=== PATIENT | male | born 1980 | race African-American/Black ===

== ENCOUNTER 2016-07-04 08:53 | Emergency (ER) ==
[2016-07-04 09:01] VITALS: BP 151/73
--- NOTE | 2016-07-04 09:35 | PROVIDER DOCUMENTATION ---
HPI-General Adult - General Source: patient - History of Present Illness -Gen Adult Nature of Presenting Problems: Pt is 35 y/o M presents to the ED with F. Pt states waking up this am feeling warm. Pt denies cough and pain. Pt states also needing refill for BP meds. Location of Pain/Injury: reports: none Pain Radiation: reports: no radiation Quality of Pain: reports: none Severity: reports: mild Onset/Duration: reports: this morning Timing: reports: still present Context/Activities at Onset: reports: light activity Modifying Factors: improves with: nothing Associated Symptoms: reports: fever/chills (F). denies: anxiety, arm pain, back /neck pain, chest pain, constipation, cough, diaphoresis, diarrhea, dizziness, EENT symptoms, fatigue, genitourinary problems, headaches, heartburn, joint pain , loss of appetite, malaise, muscle aches, sinus congestion/drainage, nausea, rash, seizure, shortness of breath, sensory/motor loss, pain with inspiration, swelling/mass in abdomen, syncope, vomiting, weakness, trouble walking Similar Symptoms Previously?: No Recently seen or treated by another doctor?: No <Nasreen Chase - Last Filed: 07/04/16 09:39> <Raymond Baig - Last Filed: 07/04/16 09:51> - General Chief Complaint: Cold Symptoms Stated Complaint: FEVER Time Seen by Provider: 07/04/16 09:06 Allergies/Adverse Reactions: Patient Allergies Allergy/AdvReac Type Severity Reaction Status Date / Time No Known Allergies Allergy Verified 07/03/15 14:29 Home Medications: Home Medication List Medication Instructions Recorded Confirmed Last Taken Type Gabapentin [Neurontin] 900 mg PO TID 07/03/15 07/03/15 07/02/15 History Hydrocodone/Acetaminophen [Lortab 1 tab PO Q6H PRN 07/03/15 07/03/15 07/02/15 History 10-325 mg Tablet] Lorazepam [Ativan] 1 mg PO BID 07/03/15 07/03/15 Unknown History Azithromycin [Zithromax Z-Chris] 250 mg PO DIRECTED #1 pkg 09/27/15 Unknown Rx Doxycycline 100 mg PO BID #20 capsule 09/27/15 Unknown Rx Prednisone 20 mg PO BID #10 tablet 05/24/16 Unknown Rx Azithromycin [Zithromax Z-Chris] 250 mg PO DIRECTED #1 pkg 07/04/16 Unknown Rx Ibuprofen [Motrin] 800 mg PO Q8H PRN PRN #20 tablet 07/04/16 Unknown Rx Lisinopril/Hydrochlorothiazide 1 each PO DAILY #30 tablet 07/04/16 Unknown Rx [Lisinopril-Hctz 20-12.5 mg Tab] Review of Systems - Adult - REVIEW OF SYSTEMS - ADULT Constitutional: reports: fever. denies: chills Eyes: denies: blurred vision, double vision Ears, Nose, Mouth & Throat: denies: ear pain, nose pain, throat pain Cardiovascular: reports: irregular heart rate (tachy). denies: chest pain, heart murmur Respiratory: denies: cough, shortness of breath, wheezing Gastrointestinal: denies: abdominal pain, hematemesis, diarrhea, nausea, vomiting Genitourinary: denies: dysuria, hematuria Musculoskeletal: denies: bone pain, joint pain, neck pain Integumentary: denies: hives, itching Neurological: denies: dizziness/vertigo, headache/migraines Psychiatric: reports: no symptoms reported Endocrine: reports: no symptoms reported Hematologic/Lymphatic: reports: no symptoms reported Allergic/Immunologic: reports: no symptoms reported All Other Systems: Reviewed and Negative <Nasreen Chase - Last Filed: 07/04/16 09:39> Past History - Adult - PAST MEDICAL HISTORY-ADULT Review of Records: reports: Nursing Assessment Review, Medications Reviewed, Social history reviewed & non-contributory. Major Childhood Illnesses: reports: denies history Cardiovascular: reports: HTN Respiratory: reports: denies history Gastrointestinal: reports: denies history Obstetrical/Gynecological: reports: denies history Genitourinary: reports: denies history Musculoskeletal: reports: denies history Neurological: reports: denies history Psychiatric: reports: depression Endocrine/Immune: reports: denies history Other Conditions: reports: denies history - PRIOR SURGERIES/PROCEDURES Surgical/Procedure History: reports: other (RAKA) - IMMUNIZATION STATUS Childhood Immunizations: See Nurse Assessment Flu Vaccine: See Nurse Assessment - FAMILY HISTORY Family History: reviewed, not pertinent - SOCIAL HISTORY Smoking: cigarettes, greater than 1 pack/day Provider spent 3-5 mins advising pt. on dangers of tobacco.: Discussed manners to quit use, and f/u contacts for add'l counseling. Substance Use: alcohol Alcohol Use Frequency: occasionally Number of drinks per typical drinking period:: 3-4 drinks Living Situation: family <Aditi Chaseomi - Last Filed: 07/04/16 09:39> Physical Exam-General - PHYSICAL EXAM-ADULT Initial Vital Signs Reviewed: Yes - CONSTITUTIONAL General Appearance: appears well, alert, no apparent distress - EYES Eyes: PERRL/EOMI, pink conjunctivae, fundi clear, no AV nicking - HEAD, EARS, NOSE, MOUTH & THROAT HENMT: normocephalic/atraumatic, moist mucous membranes, normal ENT inspection, TMs normal, pharynx normal - NECK Neck: non-tender, full range of motion, supple, normal inspection - RESPIRATORY Respiratory: chest non-tender, lungs clear, normal breath sounds, no pleuratic chest pain, no respiratory distress, no accessory muscle use - CARDIOVASCULAR Cardiovascular: normal peripheral pulses, no edema, no gallop, no JVD, no murmur , tachycardia - GASTROINTESTINAL (ABDOMEN) Abdominal Exam: normal bowel sounds, non tender, soft, no organomegaly, no pulsatile mass - LYMPHATIC Lymphatic: no adenopathy - MUSCULOSKELETAL Back Exam: normal inspection, no CVA tenderness, no vertebral tenderness Extremity: normal range of motion, non-tender, normal gait, normal inspection, no pedal edema, no calf tenderness, normal capillary refill, pelvis stable - SKIN Integumentary: normal color, normal turgor, warm/dry - NEUROLOGIC Neurologic: pattern grader cutter II-XII nml as tested, grossly normal, no motor/sensory deficits - PSYCHIATRIC Psych/Mental Status: normal mood/affect, normal thought content, normal thought process, oriented x 3 <Nasreen Chase - Last Filed: 07/04/16 09:39> Progress - PLAN OF CARE/RESULTS Progress/Plan/Lab Results: Orders Category Date Time Status CHEST-2 VIEWS [RAD] Stat Exams 07/04/16 09:07 Taken Flu [INFLUENZA SCREEN PL] Stat Lab 07/04/16 09:05 Received Vital Signs - 24 hr 07/04/16 08:59 Temperature 100.2 F H Pulse Rate 116 H Respiratory 18 Rate Blood Pressure 151/73 O2 Sat by Pulse 97 Oximetry Laboratory Tests 07/04/16 09:05 Influenza A (Rapid) NEGATIVE Influenza B (Rapid) NEGATIVE - XRAY 1 XRAY: Bilateral XRAY Study: Chest Impression: Normal XRAY Interpretation: negative <Nasreen Chase - Last Filed: 07/04/16 09:39> Departure - Departure Time of Disposition Order: 09:35 Certified Medical Emergency: Emergent <Nasreen Chase - Last Filed: 07/04/16 09:39> - Departure Time of Disposition Order: 09:48 Certified Medical Emergency: Emergent <Raymond Baig - Last Filed: 07/04/16 09:51> - Departure DIAGNOSIS: Encounter for medication refill, Viral syndrome Disposition: HOME 01 Condition: Stable Additional Instructions: ED Follow Up Instructions: You have been treated by a care provider in the Emergency Department. These instructions are being provided to you so you can have an understanding of how to care for yourself upon discharge. Upon discharge from the Emergency Department, you are responsible for making arrangements for follow-up care by a physician of your choice. Take all prescribed medications as directed. Return to the Emergency Department immediately for any new or worsening symptoms. You may call the Physician Referral phone number at [phone] to obtain a list of Physicians who are taking new patients. Prescriptions: Lisinopril/Hydrochlorothiazide [Lisinopril-Hctz 20-12.5 mg Tab] 1 each PO DAILY #30 tablet Ibuprofen [Motrin] 800 mg PO Q8H PRN PRN #20 tablet PRN Reason: Fever Azithromycin [Zithromax Z-Chris] 250 mg PO DIRECTED #1 pkg Referrals: None,PCP [Primary Care Provider] - Attestation - Scribe Verification/Attestation Scribe:: Nasreen Chase Acting as Scribe for:: Raymond Baig Scribe documention review:: This chart was documented by a scribe and accurately reflects the service the provider performed and the decisions made by the provider. <Nasreen Chase - Last Filed: 07/04/16 09:39> Physician Attestation - Physician Attestation I, the provider, attest to the following statement:: Raymond Baig Physician documentation Attestation:: This documentation recorded by the scribe accurately reflects the service I personally performed and the decisions made by me. <Raymond Baig - Last Filed: 07/04/16 09:51>
[2016-07-04] MEDS ORDERED: MOTRIN ONE (09:42)
[2016-07-04] MEDS ORDERED: MOTRIN PO ONE (09:47)
--- NOTE | 2016-07-04 09:55 | Diag Imaging Result Document ---
PROCEDURE NAME: CHEST-2 VIEWS - 07/04/2016 CHEST, TWO VIEWS: INDICATION: Fever. COMPARISON: 09/27/2015. FINDINGS: The cardiomediastinal silhouette is within normal limits. The pulmonary vasculature is not congested. No infiltrates or effusions are identified. IMPRESSION: No acute abnormalities.
== END 2016-07-04 10:16 | disposition home or self-care (01) ==
LOC: P.ED 08:53
DX: B34.9 Viral infection, unspecified (principal); R50.9 Fever, unspecified; R00.0 Tachycardia, unspecified; I10 Essential (primary) hypertension; F17.210 Nicotine dependence, cigarettes, uncomplicated; Z76.0 Encounter for issue of repeat prescription; Z71.6 Tobacco abuse counseling
CPT/HCPCS: 71020; 87804; 99283

== ENCOUNTER 2016-07-07 00:04 | Emergency (ER) ==
[2016-07-07 01:11] LABS: MANUAL DIFF NEEDED? NO
--- NOTE | 2016-07-07 01:13 | PROVIDER DOCUMENTATION ---
HPI-General Adult - General Chief Complaint: Extremity Pain Stated Complaint: SWOLLEN LEG Time Seen by Provider: 07/07/16 00:46 Source: patient Allergies/Adverse Reactions: Patient Allergies Allergy/AdvReac Type Severity Reaction Status Date / Time No Known Allergies Allergy Verified 07/03/15 14:29 Home Medications: Home Medication List Medication Instructions Recorded Confirmed Last Taken Type Gabapentin [Neurontin] 900 mg PO TID 07/03/15 07/03/15 07/02/15 History Hydrocodone/Acetaminophen [Lortab 1 tab PO Q6H PRN 07/03/15 07/03/15 07/02/15 History 10-325 mg Tablet] Lorazepam [Ativan] 1 mg PO BID 07/03/15 07/03/15 Unknown History Azithromycin [Zithromax Z-Chris] 250 mg PO DIRECTED #1 pkg 09/27/15 Unknown Rx Doxycycline 100 mg PO BID #20 capsule 09/27/15 Unknown Rx Prednisone 20 mg PO BID #10 tablet 09/27/15 Unknown Rx Azithromycin [Zithromax Z-Chris] 250 mg PO DIRECTED #1 pkg 07/04/16 Unknown Rx Ibuprofen [Motrin] 800 mg PO Q8H PRN PRN #20 tablet 07/04/16 Unknown Rx Lisinopril/Hydrochlorothiazide 1 each PO DAILY #30 tablet 07/04/16 Unknown Rx [Lisinopril-Hctz 20-12.5 mg Tab] Clindamycin [Cleocin] 300 mg PO Q6HR #40 capsule 07/07/16 Unknown Rx Sulfamethoxazole/Trimethoprim 2 each PO BID #40 tablet 07/07/16 Unknown Rx [Bactrim Ds Tablet] - History of Present Illness -Gen Adult Nature of Presenting Problems: 35 YOBLKM PRESENTS TO ED WITH C/O PT STATES LT THIGH HAS BEEN SWOLLEN X 2 DAYS. PT DENIES ANY SOB. Location of Pain/Injury: reports: lower extremity Pain Radiation: reports: no radiation Quality of Pain: reports: aching Severity: reports: moderate Onset/Duration: reports: 2 days ago Timing: reports: still present Context/Activities at Onset: reports: light activity Modifying Factors: improves with: nothing Similar Symptoms Previously?: No Recently seen or treated by another doctor?: No Review of Systems - Adult - REVIEW OF SYSTEMS - ADULT Constitutional: denies: chills, fever Eyes: reports: no symptoms reported Ears, Nose, Mouth & Throat: reports: no symptoms reported Cardiovascular: denies: chest pain, palpitations, syncope Respiratory: denies: cough, shortness of breath, wheezing Gastrointestinal: denies: abdominal pain, diarrhea, nausea, vomiting Genitourinary: reports: no symptoms reported Musculoskeletal: reports: joint swelling (LEFT THIGH), muscle aches (LEFT THIGH) . denies: back pain, neck pain Integumentary: reports: no symptoms reported Neurological: denies: dizziness/vertigo, headache/migraines, syncope Psychiatric: reports: no symptoms reported Endocrine: reports: no symptoms reported Hematologic/Lymphatic: reports: no symptoms reported Allergic/Immunologic: reports: no symptoms reported All Other Systems: Reviewed and Negative Past History - Adult - PAST MEDICAL HISTORY-ADULT Review of Records: reports: Nursing Assessment Review, Medications Reviewed Cardiovascular: reports: HTN Psychiatric: reports: depression - PRIOR SURGERIES/PROCEDURES Surgical/Procedure History: reports: other (RAKA) - IMMUNIZATION STATUS Childhood Immunizations: See Nurse Assessment Flu Vaccine: See Nurse Assessment - FAMILY HISTORY Family History: reviewed, not pertinent - SOCIAL HISTORY Smoking: cigarettes, greater than 1 pack/day Provider spent 3-5 mins advising pt. on dangers of tobacco.: Discussed manners to quit use, and f/u contacts for add'l counseling. Substance Use: denies Alcohol Use Frequency: never Living Situation: family Physical Exam-General - CONSTITUTIONAL General Appearance: alert, mild distress - EYES Eyes: PERRL/EOMI, pink conjunctivae - HEAD, EARS, NOSE, MOUTH & THROAT HENMT: normocephalic/atraumatic, moist mucous membranes - NECK Neck: non-tender, full range of motion, supple - RESPIRATORY Respiratory: chest non-tender, lungs clear, normal breath sounds - CARDIOVASCULAR Cardiovascular: normal peripheral pulses, tachycardia - GASTROINTESTINAL (ABDOMEN) Abdominal Exam: normal bowel sounds, non tender, soft - LYMPHATIC Lymphatic: no adenopathy - MUSCULOSKELETAL Back Exam: normal inspection, no CVA tenderness, no vertebral tenderness Extremity: normal range of motion, swelling (LT THIGH), tenderness (LT THIGH) - SKIN Integumentary: normal color, normal turgor, warm/dry - NEUROLOGIC Neurologic: grossly normal - PSYCHIATRIC Psych/Mental Status: oriented x 3 Departure - Departure Time of Disposition Order: 02:17 DIAGNOSIS: Cellulitis Qualifiers: Site of cellulitis: unspecified site Qualified Code(s): L03.90 - Cellulitis, unspecified Disposition: HOME 01 Certified Medical Emergency: Emergent Condition: Stable Additional Instructions: ED Follow Up Instructions: You have been treated by a care provider in the Emergency Department. These instructions are being provided to you so you can have an understanding of how to care for yourself upon discharge. Upon discharge from the Emergency Department, you are responsible for making arrangements for follow-up care by a physician of your choice. Take all prescribed medications as directed. Return to the Emergency Department immediately for any new or worsening symptoms. You may call the Physician Referral phone number at [phone] to obtain a list of Physicians who are taking new patients. Prescriptions: Clindamycin [Cleocin] 300 mg PO Q6HR #40 capsule Sulfamethoxazole/Trimethoprim [Bactrim Ds Tablet] 2 each PO BID #40 tablet Referrals: None,PCP [Primary Care Provider] - Karena Perez MD [STAFF PHYSICIAN] - Forms: Return to School/Parent Work Instructions: Clindamycin capsules, Cellulitis, [id number], Sulfamethoxazole ; Trimethoprim, [id number] tablets Attestation - Scribe Verification/Attestation Scribe:: Rogelio Juan Acting as Scribe for:: Demarco Waters Scribe documention review:: This chart was documented by a scribe and accurately reflects the service the provider performed and the decisions made by the provider.
[2016-07-07 01:30] LABS: BASO% 0.2 % (0.0-0.8); EOS# 0.05 X1000 (0.0-0.7); EOS% 0.8 % (0.0-10.0); HEMATOCRIT 42.4 % (42.0-52.0); HEMOGLOBIN 14.8 g/dL (14.0-18.0); IMM GRAN# 0.01 X1000 (0.0-0.04); IMM GRAN% 0.2 % (0.0-0.5); LYMPH# 1.92 X1000 (1.2-3.4); LYMPH% 32.3 % (20.5-51.1); MCH 31.4 PG (27-31); MCHC 34.9 g/dL (33-37); MONO% 10.1 % (1.7-9.3); NEUT% 56.4 % (42.2-75.2); PLT 190 X1000 (130-400); RBC 4.71 XMIL (4.7-6.1)
[2016-07-07 01:33] LABS: INR 0.99 (0.86-1.15); PROTIME 13.4 Seconds (12.1-15.5)
[2016-07-07 02:08] LABS: AGAP 11; ALKALINE PHOSPHATASE 52 U/L (32-122); BUN 17 mg/dL (8-22); CALCIUM 9.6 mg/dL (8.8-10.2); CHLORIDE 102 mmol/L (98-107); COSMO 280; GOT 42 U/L (10-34); GPT 52 U/L (10-44); MAGNESIUM 2.3 mg/dL (1.5-2.7); POTASSIUM 3.4 mmol/L (3.5-5.1); SODIUM 139 mmol/L (136-145); TCO2 25 mmol/L (25-35)
[2016-07-07 02:23] VITALS: BP 140/089
== END 2016-07-07 02:22 | disposition home or self-care (01) ==
LOC: P.ED 00:04
DX: L03.116 Cellulitis of left lower limb (principal); M79.652 Pain in left thigh; M79.1 Myalgia; R22.42 Localized swelling, mass and lump, left lower limb; R00.0 Tachycardia, unspecified; I10 Essential (primary) hypertension; F17.210 Nicotine dependence, cigarettes, uncomplicated; Z79.899 Other long term (current) drug therapy; Z71.6 Tobacco abuse counseling
CPT/HCPCS: 80053; 83735; 83880; 85025; 85379; 85610; 85730; 99283